=== PATIENT | female | born 1985 | race Caucasian/White ===

== ENCOUNTER → 2016-11-28 | Outpatient (CLI) | payer OTHER ==
[~2016-11-28] MED LIST: LEVOIUD; NAPR-1169 PO; SERT1TAB72 PO; SUMA6INJ SQ; ZOLM1TAB3 PO; ZOLM2.5T PO
== END | disposition home or self-care (01) ==
LOC: C.PAPS 15:13
PROVIDERS: ATTEND Obstetrics & Gynecology
DX: Z12.4 Encounter for screening for malignant neoplasm of cervix (principal)

== ENCOUNTER 2017-02-27 07:14 | Emergency (ER) | payer OTHER ==
[~2017-02-27] VITALS: Ht 167.6 cm; Wt 71.5 kg
[~2017-02-27 07:14] MED LIST changes: -NAPR-1169 PO; -SERT1TAB72 PO; -SUMA6INJ SQ
[2017-02-27 07:18] VITALS: TEMP 36.6; O2SAT 99; Ht 167.6 cm; Wt 71.5 kg
[2017-02-27] MEDS ORDERED: SERT1TAB72 PO (07:30)
[2017-02-27] MEDS ORDERED: SUMA6INJ SQ (07:30)
[2017-02-27] MEDS ORDERED: KETOROLAC TROMETHAMINE 60 MG/2 ML VIAL IM STA (07:54)
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
--- NOTE | 2017-02-27 08:25 | DIAGNOSTIC IMAGING REPORT ---
RIGHT HUMERUS MIN 2 VIEWS ROUTINE HISTORY: 31 years-old Female acute right humerus pain s/p fall backwards on steps COMPARISON: None available TECHNIQUE: 3 views of the right humerus FINDINGS: No acute fracture, dislocation or significant degenerative changes are present. Soft tissues are within normal limits without radiopaque foreign body. Image lung banks are clear. IMPRESSION: No acute bony abnormality. The above report was generated using voice recognition software. It may contain grammatical, syntax or spelling errors. Electronically signed by: Zach Appiah M.D. 02/27/2017 8:24 AM Dictated Date/Time: 02/27/2017 8:22 AM
--- NOTE | 2017-02-27 08:27 | DIAGNOSTIC IMAGING REPORT ---
RIGHT HIP UNILATERAL 2 VIEWS HISTORY: 31 years-old Female right hip pain s/p fall backwards on stairs Right COMPARISON: CT abdomen and pelvis 08/18/2013 TECHNIQUE: 2 views of the right hip FINDINGS: There is no acute fracture, dislocation or significant degenerative changes. 10 x 7 mm bone island is noted within the right iliac bone. Intrauterine device is noted in the mid pelvis. Phleboliths are seen. Soft tissues are within normal limits. IMPRESSION: No acute bony abnormality. The above report was generated using voice recognition software. It may contain grammatical, syntax or spelling errors. Electronically signed by: Zach Appiah M.D. 02/27/2017 8:26 AM Dictated Date/Time: 02/27/2017 8:24 AM
[2017-02-27] MEDS ORDERED: NAPR-1169 PO (08:39)
[2017-02-27 08:57] VITALS: BP 114/67; PULSE 65
== END 2017-02-27 08:58 | disposition home or self-care (01) ==
LOC: C.EDB 07:15
DX: S40.021A Contusion of right upper arm, initial encounter (principal); M25.551 Pain in right hip; W10.9XXA Fall (on) (from) unspecified stairs and steps, initial encounter; Z79.899 Other long term (current) drug therapy; J45.909 Unspecified asthma, uncomplicated; Z90.49 Acquired absence of other specified parts of digestive tract

== ENCOUNTER → 2017-05-16 | Outpatient (CLI) | payer OTHER ==
[~2017-05-16] MED LIST changes: +NAPR-1169 PO; +SERT1TAB72 PO; +SUMA6INJ SQ; -ZOLM1TAB3 PO; -ZOLM2.5T PO
--- NOTE | 2017-05-16 16:42 | DIAGNOSTIC IMAGING REPORT ---
R UPPER EXT JOINT WITHOUT CLINICAL HISTORY: 31 years-old Female presenting with FALL. TECHNIQUE: Multisequence, multiplanar MR imaging of the right elbow was performed without the use of intravenous contrast. IV contrast: None. COMPARISON: Plain radiographs from 02/27/2017. FINDINGS: Localizer images: Unremarkable. A marker is noted over the medial elbow at the site of clinical interest. No subjacent subcutaneous or soft tissue abnormality at the site. However, mild subcutaneous edema is noted over the posterior aspect of the lateral epicondyle, superficial to and within the cubital tunnel. Grossly normal appearing ulnar nerve. Cubital tunnel retinaculum intact. No bony edema. No gross evidence of an articular cartilage defect. No significant joint effusion. Common extensor tendon intact. Radial collateral ligament, annular ligament, and lateral ulnar collateral ligament intact. Common flexor tendon intact. Ulnar collateral ligament intact. Triceps tendon intact. Biceps tendon intact. Brachialis tendon intact. Normal muscle bulk and muscle signal intensity. IMPRESSION: Mild edema both superficial to and within the cubital tunnel along the posterior aspect of the medial elbow. Grossly normal appearing ulnar nerve. Otherwise normal MR examination of the elbow. Electronically signed by: Enrique Ortega M.D. 05/16/2017 4:40 PM Dictated Date/Time: 05/16/2017 4:32 PM
== END | disposition home or self-care (01) ==
PROVIDERS: ATTEND Orthopaedic Surgery Orthopaedic Surgery of the Spine
DX: M25.521 Pain in right elbow (principal); G56.21 Lesion of ulnar nerve, right upper limb